=== PATIENT | female | born 1945 | race Caucasian/White ===

== ENCOUNTER → 2017-08-28 | Outpatient (CLI) | payer BC ==
[~2017-08-28] MED LIST: DOXE2.5; OLME5TAB; WARF1
== END | disposition home or self-care (01) ==
LOC: LAB SHORT 17:12 → LAB EV 17:12
DX: N39.0 Urinary tract infection, site not specified (principal)
CPT/HCPCS: 87077; 87086; 87186

== ENCOUNTER → 2020-12-03 | Outpatient (CLI) | payer BC ==
[2020-12-04 11:01] LABS: Candida species (DNA Probe) Negative (NEGATIVE); G. vaginalis (DNA Probe) Negative (NEGATIVE); T. vaginalis (DNA Probe) Negative (NEGATIVE)
== END | disposition home or self-care (01) ==
LOC: LAB 10:54 → LAB SHORT 10:54
PROVIDERS: Obstetrics & Gynecology
DX: N76.0 Acute vaginitis (principal)
CPT/HCPCS: 87480; 87510; 87660

== ENCOUNTER → 2021-04-08 | Outpatient (CLI) | payer BC | LOC: LAB SHORT 14:55 | DX: N39.0 Urinary tract infection, site not specified (principal) | CPT/HCPCS: 87077; 87086; 87186 ==

== ENCOUNTER → 2022-08-28 | Outpatient (CLI) | payer BC | LOC: LAB SHORT 15:36 → LAB 15:36 | DX: N39.0 Urinary tract infection, site not specified (principal) | CPT/HCPCS: 87077; 87086; 87147; 87186 ==